=== PATIENT | female | born 1975 | race Caucasian/White ===

== ENCOUNTER 2017-11-20 19:46 | Emergency (ER) | payer BC ==
[2017-11-20 21:05] LABS: URINE BLOOD (Dip) POC Trace-intact (NEGATIVE); URINE GLUCOSE (Dip) POC Negative (NEGATIVE); URINE KETONES (Dip) POC Negative (NEGATIVE); URINE LEUKOCYTE EST (Dip) POC Negative (NEGATIVE); URINE NITRITE (Dip) POC Negative (NEGATIVE); URINE TOTAL PROTEIN POC Negative (NEGATIVE)
== END 2017-11-21 00:06 | disposition home or self-care (01) ==
LOC: FTE 11-21 00:06
DX: R10.9 Unspecified abdominal pain (principal)
CPT/HCPCS: 74176; 81003; 81025; 99284-25